=== PATIENT | male | born 1950 | race Caucasian/White ===

== ENCOUNTER 2017-05-01 13:16 | Emergency (ER) | payer MEDICARE, OTHER ==
[~2017-05-01] VITALS: Ht 172.7 cm; Wt 113.0 kg
[~2017-05-01 13:16] MED LIST: ALBU1AER INH; ASPI81TA82 PO; ATOR80TA PO; DUONI NEB; METO25 PO; OMEP20TA PO; PRED10 PO; PRED20 PO
[2017-05-01 13:17] VITALS: BP 135/77; PULSE 82; RESP 16; TEMP 98.1; O2SAT 96
[2017-05-01] MEDS ORDERED: ACETAMINOPHEN/HYDROcodone 325 MG/5 MG TAB PO ONE (14:00)
[2017-05-01] MEDS ORDERED: KETOROLAC TROMETHAMINE 60 MG/2 ML (IM) VIAL IM ONE (14:00)
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
--- NOTE | 2017-05-01 14:34 | RADRPT ---
EXAM DATE/TIME: 05/01/2017 14:21 [facility] COMPARISON: CHEST SINGLE AP, November 22, 2015, 8:19. INDICATIONS : Left shoulder pain. heard a pop when lifting weights yesterday. MEDICAL HISTORY : None. SURGICAL HISTORY : None. ENCOUNTER: Initial ACUITY: 2 days PAIN SCORE: 10/10 LOCATION: Left shoulder FINDINGS: There are moderate osteoarthritic changes in the a.c. joint. The remainder of the bony structures are intact. The alignment is adequate. The humeral head is well situated within the glenoid fossa. CONCLUSION: 1. Degenerative arthritic changes in the left acromioclavicular joint. Vel Jackson MD on May 01, 2017 at 14:33 Board Certified Radiologist. This report was verified electronically.
[2017-05-01] MEDS ORDERED: HYDR-3533 PO (14:35)
[2017-05-01] MEDS ORDERED: IBUP-232 PO (14:35)
== END 2017-05-01 15:15 | disposition home or self-care (01) ==
LOC: NEPK 13:16
DX: M25.512 Pain in left shoulder (principal); J44.9 Chronic obstructive pulmonary disease, unspecified; I10 Essential (primary) hypertension
CPT/HCPCS: 73030; 96372; 99284; J1885